=== PATIENT | female | born 1940 | race African-American/Black ===

== ENCOUNTER 2020-02-12 13:44 | Inpatient (IN) | payer MEDICARE, MEDICAID ==
[~2020-02-12] VITALS: Ht 154.9 cm; Wt 68.9 kg
[~2020-02-12 13:44] MED LIST: ASPI-1497 PO; COLC0.6T66 PO; DIAZ10TA4 PO; METF-416 PO; RISP1 PO
[2020-02-12] MEDS ORDERED: tylenol 3 (13:47)
[2020-02-12 14:48] LABS: BASOPHILS % 0.2 % (0.0-2.0); HEMOGLOBIN. 13.7 g/dL (12.0-16.0); LYMPHOCYTES % 7.7 % (20.0-50.0); MEAN CORPUSCULAR HEMOGLOBIN 30.4 pg (28.0-32.0); MEAN CORPUSCULAR VOLUME 90.9 fL (81.0-99.0); MEAN PLATELET VOLUME 9.3 fl (7.4-10.4); MONOCYTES % 7.4 % (2.0-8.0); NEUTROPHILS % 84.7 % (40.0-76.0); PLATELET 361 x1000/uL (130-400); RED BLOOD CELL COUNT 4.51 mill/uL (4.2-5.4); RED CELL DISTRIBUTION WIDTH 16.3 % (11.6-14.6)
[2020-02-12 14:53] LABS: CHLORIDE 109 mEq/L (98-107)
[2020-02-12 14:57] LABS: ETHANOL BLOOD < 10 mg/dL; INR 0.9
[2020-02-12 15:00] LABS: LDL CHOLESTEROL 90 mg/dL (5-100)
[2020-02-12] MEDS ORDERED: IPRATROPIUM/ALBUTEROL 0.5-3(2.5)MG/3ML NEB ORI PRN (16:15)
[2020-02-12] MEDS ORDERED: GUAIFENESIN 200MG/10ML SUGAR FREE UDC PO PRN (16:15)
[2020-02-12] MEDS ORDERED: NITROGLYCERIN 0.4MG TABLET SL SL PRN (16:15)
[2020-02-12] MEDS ORDERED: MAGNESIUM/ALUMINUM HYDROXIDE/SIMETHICONE 30ML UDC PO PRN (16:15)
[2020-02-12] MEDS ORDERED: ZOLPIDEM TARTRATE 5MG TABLET PO PRN ×2 (16:15→21:00)
[2020-02-12] MEDS ORDERED: LORAZEPAM 0.5MG TABLET PO PRN (16:15)
[2020-02-12] MEDS ORDERED: ONDANSETRON HCL 4MG/2ML INJ IV PRN (16:15)
[2020-02-12] MEDS ORDERED: ASPIRIN 300MG SUPP PR ONE (16:15)
[2020-02-12] MEDS ORDERED: DOCUSATE SODIUM 100MG CAPSULE PO PRN (16:15)
[2020-02-12] MEDS ORDERED: CLONIDINE 0.1MG TABLET PO PRN (16:15)
[2020-02-12 16:20] LABS: CLARITY URINE CLEAR (CLEAR); COLOR URINE YELLOW (YELLOW); KETONES URINE NEGATIVE (NEGATIVE); LEUKOCYTE ESTERASE URINE NEGATIVE (NEGATIVE); NITRITE URINE NEGATIVE (NEGATIVE); OCCULT BLOOD URINE 3+ (NEGATIVE); PROTEIN URINE 2+ (NEGATIVE); SPECIFIC GRAVITY URINE 1.024 (1.005-1.030); UROBILINOGEN URINE 0.2 E.U./dL (0.2-1.0)
[2020-02-12 16:38] LABS: *AMPHETAMINES SCREEN URINE NEGATIVE (NEGATIVE); *BARBITURATES SCREEN URINE NEGATIVE (NEGATIVE); *BENZODIAZEPINES SCREEN URINE PRESUMTIVE POSITIVE (NEGATIVE); *COCAINE SCREEN URINE NEGATIVE (NEGATIVE); METHADONE URINE SCREEN NEGATIVE (NEGATIVE); OPIATES URINE SCREEN PRESUMTIVE POSITIVE (NEGATIVE)
[2020-02-12 16:39] LABS: CANNABINOID URINE SCREEN NEGATIVE (NEGATIVE); PHENCYCLIDINE URINE SCREEN NEGATIVE (NEGATIVE)
[2020-02-12 17:26] LABS: VITAMIN B12 SERUM 495 pg/mL (211-911)
[2020-02-12 17:29] LABS: FOLIC ACID (FOLATE) SERUM > 20.00 ng/mL (>5.38)
[2020-02-12] MEDS ORDERED: DEXTROSE 50% WATER 50ML SYRINGE IV PRN (19:30)
[2020-02-12] MEDS: ATORVASTATIN CALCIUM 10MG TABLET PO SCH (21:00)
[2020-02-12] MEDS: FAMOTIDINE 20MG TABLET PO SCH (21:00)
[2020-02-12] MEDS: BLOOD SUGAR DIAGNOSTIC STRIP TEST SCH (21:00)
[2020-02-12] MEDS: ASCORBIC ACID 500 MG TABLET PO SCH (21:00)
[2020-02-12] MEDS: INSULIN LISPRO 100 UNITS/ML SUBCUT SCH (21:00)
[2020-02-12] MEDS ORDERED: IOHEXOL-350 100 ML BOTTLE ONE (22:09)
[2020-02-12] MEDS ORDERED: ENOXAPARIN 30MG/0.3ML SYR SUBCUT ONE (23:15)
[2020-02-12] MEDS: ENOXAPARIN 40MG/0.4ML SYR SUBCUT SCH (23:50)
[2020-02-13 04:00] VITALS: BP 124/62
[2020-02-13] MEDS: BLOOD SUGAR DIAGNOSTIC STRIP TEST SCH ×4 (06:38→21:20)
[2020-02-13] MEDS: INSULIN LISPRO 100 UNITS/ML SUBCUT SCH ×4 (06:38→21:00)
[2020-02-13 08:00] VITALS: BP 134/78
[2020-02-13] MEDS: ZINC SULFATE 220 MG ( 50 ) CAPSULE PO SCH (08:25)
[2020-02-13] MEDS: ASCORBIC ACID 500 MG TABLET PO SCH ×2 (08:25→22:40)
[2020-02-13] MEDS: CLOPIDOGREL 75MG TABLET PO SCH (08:25)
[2020-02-13 09:40] LABS: T4 FREE 0.82 ng/dL (0.76-1.46)
[2020-02-13 09:43] LABS: CREATINE KINASE MB FRACTION 7.7 ng/mL (0.5-3.6)
[2020-02-13 12:00] VITALS: BP 121/59
[2020-02-13 16:00] VITALS: BP 133/75
[2020-02-13] MEDS ORDERED: IPRATROPIUM/ALBUTEROL 0.5-3(2.5)MG/3ML NEB HHN PRN (16:00)
[2020-02-13 16:34] LABS: CREATINE KINASE MB FRACTION 4.9 ng/mL (0.5-3.6)
[2020-02-13] MEDS ORDERED: THROAT LOZENGES-BENZOCAINE/MENTH/CETYLPYRD CL LOZENGES MM PRN (17:30)
[2020-02-13 20:00] VITALS: BP 111/64
[2020-02-13] MEDS: FAMOTIDINE 20MG TABLET PO SCH (22:39)
[2020-02-13] MEDS: ATORVASTATIN CALCIUM 10MG TABLET PO SCH (22:39)
[2020-02-13] MEDS: ENOXAPARIN 40MG/0.4ML SYR SUBCUT SCH (22:40)
[2020-02-13] MEDS: ACETAMINOPHEN 325MG TABLET PO PRN (22:49)
[2020-02-14] VITALS: BP 118/63
[2020-02-14 04:00] VITALS: BP 108/55
[2020-02-14] MEDS: INSULIN LISPRO 100 UNITS/ML SUBCUT SCH ×4 (06:27→21:52)
[2020-02-14] MEDS: BLOOD SUGAR DIAGNOSTIC STRIP TEST SCH ×4 (06:27→21:00)
[2020-02-14 08:00] VITALS: BP 130/75
[2020-02-14] MEDS: ZINC SULFATE 220 MG ( 50 ) CAPSULE PO SCH (08:26)
[2020-02-14] MEDS: ASCORBIC ACID 500 MG TABLET PO SCH ×2 (08:26→21:50)
[2020-02-14] MEDS: CLOPIDOGREL 75MG TABLET PO SCH (08:26)
[2020-02-14 12:00] VITALS: BP 135/91
[2020-02-14 16:00] VITALS: BP 110/60
[2020-02-14] MEDS: ACETAMINOPHEN 325MG TABLET PO PRN (18:32)
[2020-02-14 20:00] VITALS: BP 158/79
[2020-02-14] MEDS: FAMOTIDINE 20MG TABLET PO SCH (21:50)
[2020-02-14] MEDS: ATORVASTATIN CALCIUM 10MG TABLET PO SCH (21:50)
[2020-02-14] MEDS: ENOXAPARIN 40MG/0.4ML SYR SUBCUT SCH (21:51)
[2020-02-15] VITALS (7 sets, daily range): BP systolic 106–150; BP diastolic 58–80
[2020-02-15] MEDS: ZINC SULFATE 220 MG ( 50 ) CAPSULE PO SCH (09:44)
[2020-02-15] MEDS: ASCORBIC ACID 500 MG TABLET PO SCH ×2 (09:44→21:18)
[2020-02-15] MEDS: CLOPIDOGREL 75MG TABLET PO SCH (09:44)
[2020-02-15] MEDS: BLOOD SUGAR DIAGNOSTIC STRIP TEST SCH ×4 (11:45→21:18)
[2020-02-15] MEDS: INSULIN LISPRO 100 UNITS/ML SUBCUT SCH ×3 (13:11→21:00)
[2020-02-15] MEDS: DILTIAZEM HCL 60MG TABLET PO SCH ×2 (14:30→17:35)
[2020-02-15] MEDS: ATORVASTATIN CALCIUM 10MG TABLET PO SCH (21:18)
[2020-02-15] MEDS: FAMOTIDINE 20MG TABLET PO SCH (21:18)
[2020-02-15] MEDS: ENOXAPARIN 40MG/0.4ML SYR SUBCUT SCH (21:31)
[2020-02-16] VITALS: BP 152/69
[2020-02-16] MEDS: DILTIAZEM HCL 60MG TABLET PO SCH ×4 (00:54→18:16)
[2020-02-16 04:00] VITALS: BP 134/62
[2020-02-16] MEDS: BLOOD SUGAR DIAGNOSTIC STRIP TEST SCH ×3 (07:01→17:20)
[2020-02-16] MEDS: INSULIN LISPRO 100 UNITS/ML SUBCUT SCH ×3 (07:15→17:15)
[2020-02-16] MEDS: ZINC SULFATE 220 MG ( 50 ) CAPSULE PO SCH (08:49)
[2020-02-16] MEDS: CLOPIDOGREL 75MG TABLET PO SCH (08:49)
[2020-02-16] MEDS: ASCORBIC ACID 500 MG TABLET PO SCH (08:49)
[2020-02-16 12:00] VITALS: BP 135/72
[2020-02-16 12:43] VITALS: BP 135/72
[2020-02-16 16:29] VITALS: BP 125/58
[2020-02-19 01:41] VITALS: BP 114/41
[2020-02-19 05:20] VITALS: BP 112/43
== END 2020-02-16 19:20 | DRG 70 ==
LOC: ER 13:59 → EDBEDREQSVC 14:40 → EDBEDREQTM 14:40 → EDBEDREQ 14:40 → UNDOADMIN 15:59 → MICUSO 15:59 → EDBEDREQTM 16:01 → EDBEDREQ 16:01 → SUPCPDRO 16:13 → MICUSO 22:47 → 5WST 02-13 05:08
PROVIDERS: ADMIT Internal Medicine; ATTEND Internal Medicine
DX: G93.41 Metabolic encephalopathy (principal); G82.50 Quadriplegia, unspecified; M62.82 Rhabdomyolysis; R47.01 Aphasia; E11.9 Type 2 diabetes mellitus without complications; E78.5 Hyperlipidemia, unspecified; D72.829 Elevated white blood cell count, unspecified; E78.00 Pure hypercholesterolemia, unspecified; I10 Essential (primary) hypertension; K80.20 Calculus of gallbladder without cholecystitis without obstruction; R13.10 Dysphagia, unspecified; R47.1 Dysarthria and anarthria; X58.XXXA Exposure to other specified factors, initial encounter; Z20.828 Contact with and (suspected) exposure to other viral communicable diseases; S81.802A Unspecified open wound, left lower leg, initial encounter; Z86.73 Personal history of transient ischemic attack (TIA), and cerebral infarction without residual deficits; Z79.4 Long term (current) use of insulin; Z79.899 Other long term (current) drug therapy; Z79.82 Long term (current) use of aspirin; Z79.84 Long term (current) use of oral hypoglycemic drugs; Y93.89 Activity, other specified; Y92.89 Other specified places as the place of occurrence of the external cause; Y99.8 Other external cause status
CPT/HCPCS: 36415; 70496; 70498; 70551; 71045; 71275; 80053; 80061; 80305; 80320; 81003; 82550; 82553; 82607; 82746; 82962; 83036; 83540; 83550; 83721; 83880; 84439; 84443; 84484; 85025; 93005; 93306; 93970; 97162; 97166; 97530; 97535; 99291; J1650; J1815; Q9967; G0480; U0003-CS

== ENCOUNTER 2020-03-24 17:39 | Inpatient (IN) | payer MEDICARE, MEDICAID ==
[~2020-03-24] VITALS: Ht 162.6 cm; Wt 77.1 kg
[~2020-03-24 17:39] MED LIST changes: +tylenol 3
[2020-03-24 18:34] LABS: EOSINOPHILS % 4.2 % (0.0-5.0); HEMATOCRIT. 34.1 % (36.0-48.0); HEMOGLOBIN. 11.2 g/dL (12.0-16.0); MEAN CORPUSCULAR HEMOGLOBIN 30.8 pg (28.0-32.0); MEAN CORPUSCULAR VOLUME 93.7 fL (81.0-99.0); MEAN PLATELET VOLUME 9.3 fl (7.4-10.4); MONOCYTES % 12.6 % (2.0-8.0); NEUTROPHILS % 50.2 % (40.0-76.0); PLATELET 221 x1000/uL (130-400); RED BLOOD CELL COUNT 3.64 mill/uL (4.2-5.4); RED CELL DISTRIBUTION WIDTH 14.7 % (11.6-14.6)
[2020-03-24 18:40] LABS: PROTHROMBIN TIME 10.5 sec (9.6-11.0)
[2020-03-24] MEDS ORDERED: SODIUM CHLORIDE 0.9% 1,000 ML IV ONE (18:45)
[2020-03-24 18:55] LABS: CHLORIDE 112 mEq/L (98-107)
[2020-03-24 18:59] LABS: ETHANOL BLOOD < 10 mg/dL
[2020-03-24 19:01] LABS: LDL CHOLESTEROL 98 mg/dL (5-100)
[2020-03-24] MEDS ORDERED: SODIUM CHLORIDE 0.9% 1000ML BAG (SEPSIS BOLUS) IV ONE (20:00)
[2020-03-24] MEDS ORDERED: DEXTROSE 50% WATER 50ML SYRINGE IV PRN (20:00)
[2020-03-24] MEDS ORDERED: ENOXAPARIN 40MG/0.4ML SYR SUBCUT SCH (20:00)
[2020-03-24] MEDS ORDERED: NITROGLYCERIN 0.4MG TABLET SL SL PRN (20:00)
[2020-03-24] MEDS ORDERED: IPRATROPIUM/ALBUTEROL 0.5-3(2.5)MG/3ML NEB HHN PRN (20:00)
[2020-03-24] MEDS ORDERED: TRAMADOL 50MG TABLET PO PRN (20:00)
[2020-03-24] MEDS ORDERED: ONDANSETRON HCL 4MG/2ML INJ IV PRN (20:00)
[2020-03-24] MEDS ORDERED: MAGNESIUM/ALUMINUM HYDROXIDE/SIMETHICONE 30ML UDC PO PRN (20:00)
[2020-03-24] MEDS ORDERED: ACETAMINOPHEN 325MG TABLET PO PRN ×2 (20:00)
[2020-03-24] MEDS ORDERED: DOCUSATE SODIUM 100MG CAPSULE PO PRN (20:00)
[2020-03-24] MEDS ORDERED: GUAIFENESIN 200MG/10ML SUGAR FREE UDC PO PRN (20:00)
[2020-03-24] MEDS ORDERED: NA PHOS,M-B/NA PHOS,DI-BA ENEMA 118ML PR PRN (20:00)
[2020-03-24] MEDS ORDERED: CLONIDINE 0.1MG TABLET PO PRN (20:00)
[2020-03-24] MEDS ORDERED: SODIUM CHLORIDE 0.9% 2,310 ML IV SCH (21:00)
[2020-03-24] MEDS ORDERED: ZOLPIDEM TARTRATE 5MG TABLET PO PRN (21:00)
[2020-03-24] MEDS: ASCORBIC ACID 500 MG TABLET PO SCH (21:00)
[2020-03-24] MEDS ORDERED: FAMOTIDINE 20MG TABLET PO SCH (21:00)
[2020-03-24] MEDS: ENOXAPARIN 30MG/0.3ML SYR SUBCUT SCH (21:00)
[2020-03-24] MEDS: ATORVASTATIN CALCIUM 10MG TABLET PO SCH (21:00)
[2020-03-24] MEDS: BLOOD SUGAR DIAGNOSTIC STRIP TEST SCH (21:00)
[2020-03-24] MEDS: INSULIN LISPRO 100 UNITS/ML SUBCUT SCH (21:00)
[2020-03-24] MEDS ORDERED: VANCOMYCIN 1500MG in DEXTROSE 5% WATER 250ML IV NR (21:00)
[2020-03-24] MEDS: PIPERACILLIN/TAZ 3.375G PREMIX 50 ML IV SCH (22:00)
[2020-03-24 22:09] LABS: CREATINE KINASE MB FRACTION 1.3 ng/mL (0.5-3.6)
[2020-03-25] MEDS: BLOOD SUGAR DIAGNOSTIC STRIP TEST SCH ×4 (08:32→21:00)
[2020-03-25] MEDS: INSULIN LISPRO 100 UNITS/ML SUBCUT SCH ×4 (08:33→21:00)
[2020-03-25] MEDS: PIPERACILLIN/TAZ 3.375G PREMIX 50 ML IV SCH ×2 (08:52→17:23)
[2020-03-25] MEDS: CLOPIDOGREL 75MG TABLET PO SCH (09:30)
[2020-03-25] MEDS: ZINC SULFATE 220 MG ( 50 ) CAPSULE PO SCH (09:30)
[2020-03-25] MEDS: ASCORBIC ACID 500 MG TABLET PO SCH ×2 (09:30→22:33)
[2020-03-25 20:45] VITALS: BP 156/86
[2020-03-25] MEDS ORDERED: VANCOMYCIN 750 MG PREMIX 150 ML IV SCH (21:00)
[2020-03-25] MEDS: FAMOTIDINE 10MG TABLET PO SCH (22:33)
[2020-03-25] MEDS: ENOXAPARIN 30MG/0.3ML SYR SUBCUT SCH (22:34)
[2020-03-25] MEDS: ATORVASTATIN CALCIUM 10MG TABLET PO SCH (22:37)
[2020-03-25] MEDS: PIPERACILLIN/TAZOBACTAM 3.375 G in DEXT 5% WATER 100 ML IV SCH (23:43)
[2020-03-26] VITALS: BP 144/64
[2020-03-26 04:00] VITALS: BP 140/64
[2020-03-26] MEDS: INSULIN LISPRO 100 UNITS/ML SUBCUT SCH ×4 (06:23→21:36)
[2020-03-26] MEDS: BLOOD SUGAR DIAGNOSTIC STRIP TEST SCH ×4 (06:23→20:51)
[2020-03-26] MEDS: PIPERACILLIN/TAZOBACTAM 3.375 G in DEXT 5% WATER 100 ML IV SCH ×3 (06:33→22:12)
[2020-03-26 07:55] VITALS: BP 128/60
[2020-03-26] MEDS: CLOPIDOGREL 75MG TABLET PO SCH (09:19)
[2020-03-26] MEDS: ZINC SULFATE 220 MG ( 50 ) CAPSULE PO SCH (09:19)
[2020-03-26] MEDS: ASCORBIC ACID 500 MG TABLET PO SCH ×2 (09:19→21:33)
[2020-03-26 12:00] VITALS: BP 152/85
[2020-03-26 16:00] VITALS: BP 151/80
[2020-03-26 20:00] VITALS: BP 148/84
[2020-03-26 20:43] LABS: CLARITY URINE CLEAR (CLEAR); COLOR URINE YELLOW (YELLOW); KETONES URINE NEGATIVE (NEGATIVE); LEUKOCYTE ESTERASE URINE NEGATIVE (NEGATIVE); NITRITE URINE NEGATIVE (NEGATIVE); OCCULT BLOOD URINE NEGATIVE (NEGATIVE); PROTEIN URINE NEGATIVE (NEGATIVE); SPECIFIC GRAVITY URINE 1.015 (1.005-1.030)
[2020-03-26] MEDS: VANCOMYCIN 750 MG PREMIX 150 ML IV SCH (21:27)
[2020-03-26] MEDS: ATORVASTATIN CALCIUM 10MG TABLET PO SCH (21:33)
[2020-03-26] MEDS: FAMOTIDINE 10MG TABLET PO SCH (21:34)
[2020-03-26] MEDS: ENOXAPARIN 30MG/0.3ML SYR SUBCUT SCH (21:35)
[2020-03-27] VITALS: BP 121/63
[2020-03-27 04:00] VITALS: BP 169/82
[2020-03-27] MEDS: PIPERACILLIN/TAZOBACTAM 3.375 G in DEXT 5% WATER 100 ML IV SCH ×3 (05:03→22:08)
[2020-03-27] MEDS: BLOOD SUGAR DIAGNOSTIC STRIP TEST SCH ×4 (06:26→20:52)
[2020-03-27] MEDS: INSULIN LISPRO 100 UNITS/ML SUBCUT SCH ×4 (06:35→20:53)
[2020-03-27 08:00] VITALS: BP 153/75
[2020-03-27] MEDS: ZINC SULFATE 220 MG ( 50 ) CAPSULE PO SCH (08:37)
[2020-03-27] MEDS: ASCORBIC ACID 500 MG TABLET PO SCH ×2 (08:37→20:44)
[2020-03-27] MEDS: CLOPIDOGREL 75MG TABLET PO SCH (08:37)
[2020-03-27 12:00] VITALS: BP 129/80
[2020-03-27 16:00] VITALS: BP 133/76
[2020-03-27] MEDS: VANCOMYCIN 750 MG PREMIX 150 ML IV SCH (16:44)
[2020-03-27 20:00] VITALS: BP 152/85
[2020-03-27] MEDS: FAMOTIDINE 10MG TABLET PO SCH (20:44)
[2020-03-27] MEDS: ENOXAPARIN 30MG/0.3ML SYR SUBCUT SCH (20:45)
[2020-03-27] MEDS: ATORVASTATIN CALCIUM 10MG TABLET PO SCH (20:46)
[2020-03-28] VITALS: BP 160/79
[2020-03-28 04:00] VITALS: BP 162/90
[2020-03-28] MEDS: PIPERACILLIN/TAZOBACTAM 3.375 G in DEXT 5% WATER 100 ML IV SCH (06:20)
[2020-03-28] MEDS: INSULIN LISPRO 100 UNITS/ML SUBCUT SCH ×2 (06:26→12:40)
[2020-03-28] MEDS: BLOOD SUGAR DIAGNOSTIC STRIP TEST SCH ×2 (06:26→12:54)
[2020-03-28 07:16] LABS: CHLORIDE 110 mEq/L (98-107)
[2020-03-28 07:55] VITALS: BP 153/79
[2020-03-28] MEDS ORDERED: POTASSIUM CHLORIDE 20MEQ/PACKET PO SCH (08:30)
[2020-03-28] MEDS: CLOPIDOGREL 75MG TABLET PO SCH (09:25)
[2020-03-28] MEDS: ZINC SULFATE 220 MG ( 50 ) CAPSULE PO SCH (09:25)
[2020-03-28] MEDS: ASCORBIC ACID 500 MG TABLET PO SCH (09:25)
[2020-03-28] MEDS ORDERED: KCL 20MEQ/100ML PREMIX 100 ML IV SCH (10:00)
[2020-03-28] MEDS ORDERED: VANCOMYCIN 1 G PREMIX 200 ML IV SCH (11:30)
[2020-03-28 11:49] VITALS: BP 133/78
[2020-03-28] MEDS ORDERED: ATOR10TA PO (13:47)
[2020-03-28] MEDS ORDERED: CLOP75TA15 PO (13:47)
[2020-03-28 16:00] VITALS: BP 159/78
[2020-03-28] MEDS ORDERED: ENOXAPARIN 40MG/0.4ML SYR SUBCUT SCH (16:00)
[2020-03-28 18:54] VITALS: BP 159/78
== END 2020-03-28 20:15 | disposition home health service (06) | DRG 871 ==
LOC: ER 17:39 → EDBEDREQTM 18:47 → EDBEDREQSVC 18:47 → EDBEDREQ 18:47 → MICUSO 19:13 → EDBEDREQ 19:56 → EDBEDREQTM 19:56 → 8WST 03-25 22:11
PROVIDERS: ADMIT Internal Medicine; ATTEND Internal Medicine
DX: A41.9 Sepsis, unspecified organism (principal); G92 Toxic encephalopathy; E43 Unspecified severe protein-calorie malnutrition; G82.50 Quadriplegia, unspecified; N17.0 Acute kidney failure with tubular necrosis; G45.9 Transient cerebral ischemic attack, unspecified; E87.1 Hypo-osmolality and hyponatremia; E87.2 Acidosis; I13.0 Hypertensive heart and chronic kidney disease with heart failure and stage 1 through stage 4 chronic kidney disease, or unspecified chronic kidney disease; I50.32 Chronic diastolic (congestive) heart failure; L97.909 Non-pressure chronic ulcer of unspecified part of unspecified lower leg with unspecified severity; L03.90 Cellulitis, unspecified; R65.20 Severe sepsis without septic shock; Z68.29 Body mass index [BMI] 29.0-29.9, adult; E83.51 Hypocalcemia; D63.8 Anemia in other chronic diseases classified elsewhere; N18.9 Chronic kidney disease, unspecified; G90.8 Other disorders of autonomic nervous system; E11.22 Type 2 diabetes mellitus with diabetic chronic kidney disease; E11.51 Type 2 diabetes mellitus with diabetic peripheral angiopathy without gangrene; E78.00 Pure hypercholesterolemia, unspecified; R74.0 Nonspecific elevation of levels of transaminase and lactic acid dehydrogenase [LDH]; E11.622 Type 2 diabetes mellitus with other skin ulcer; E78.5 Hyperlipidemia, unspecified; I70.202 Unspecified atherosclerosis of native arteries of extremities, left leg; R13.10 Dysphagia, unspecified; Z79.4 Long term (current) use of insulin; Z79.82 Long term (current) use of aspirin; Z79.84 Long term (current) use of oral hypoglycemic drugs; Z79.899 Other long term (current) drug therapy
CPT/HCPCS: 36415; 70551; 71045; 80048; 80053; 80061; 80202; 80320; 81003; 82140; 82550; 82553; 82962; 83036; 83605; 83721; 84443; 84484; 85025; 93005; 93970; 97162; 97166; 97530; 99285; J1650; J1815; J2543; J3370; J3480; J7030; J7060; G0480

== ENCOUNTER 2020-03-31 20:11 | Inpatient (IN) | payer MEDICARE, MEDICAID ==
[~2020-03-31] VITALS: Ht 154.9 cm; Wt 60.8 kg
[~2020-03-31 20:11] MED LIST changes: +ATOR10TA PO; +CLOP75TA15 PO; -DIAZ10TA4 PO; -RISP1 PO; -tylenol 3
[2020-03-31 21:01] LABS: EOSINOPHILS % 4.8 % (0.0-5.0); HEMATOCRIT. 33.3 % (36.0-48.0); HEMOGLOBIN. 10.9 g/dL (12.0-16.0); LYMPHOCYTES % 20.1 % (20.0-50.0); MEAN CORPUSCULAR VOLUME 91.5 fL (81.0-99.0); MEAN PLATELET VOLUME 9.9 fl (7.4-10.4); MONOCYTES % 10.2 % (2.0-8.0); NEUTROPHILS % 63.9 % (40.0-76.0); PLATELET 241 x1000/uL (130-400); RED BLOOD CELL COUNT 3.64 mill/uL (4.2-5.4); RED CELL DISTRIBUTION WIDTH 14.5 % (11.6-14.6)
[2020-03-31 21:05] LABS: CHLORIDE 113 mEq/L (98-107)
[2020-03-31 21:12] LABS: PARTIAL THROMBOPLASTIN TIME 21.9 sec (23.4-31.0); PROTHROMBIN TIME 10.4 sec (9.6-11.0)
[2020-03-31] MEDS ORDERED: VISCOUS LIDOCAINE 2% 15 ML UDC PO ONE (22:15)
[2020-03-31] MEDS ORDERED: MAGNESIUM/ALUMINUM HYDROXIDE/SIMETHICONE 30ML UDC PO ONE (22:15)
[2020-03-31] MEDS ORDERED: ASPIRIN 81MG TABLET PO ONE (22:15)
[2020-04-01] MEDS ORDERED: SODIUM CHLORIDE 0.9% 1,000 ML IV ONE (00:45)
[2020-04-01 04:00] VITALS: BP 137/72
[2020-04-01] MEDS ORDERED: DEXTROSE 50% WATER 50ML SYRINGE IV PRN (05:30)
[2020-04-01] MEDS: BLOOD SUGAR DIAGNOSTIC STRIP TEST SCH ×4 (05:44→21:48)
[2020-04-01] MEDS: INSULIN LISPRO 100 UNITS/ML SUBCUT SCH ×4 (05:44→21:00)
[2020-04-01] MEDS ORDERED: METFORMIN HCL 500MG TABLET PO SCH (07:15)
[2020-04-01 08:00] VITALS: BP 153/59
[2020-04-01] MEDS ORDERED: COLCHICINE 0.6MG TABLET PO SCH (09:00)
[2020-04-01] MEDS: ASPIRIN 81MG TABLET PO SCH (09:20)
[2020-04-01] MEDS: CLOPIDOGREL 75MG TABLET PO SCH (09:20)
[2020-04-01] MEDS: METOPROLOL TARTRATE 25MG TABLET PO SCH ×2 (09:20→21:00)
[2020-04-01] MEDS: ISOSORBIDE MONONITRATE 60MG TABLET SR 24HR PO SCH (09:21)
[2020-04-01] MEDS: SODIUM CHLORIDE 0.45% 1,000 ML IV SCH (10:02)
[2020-04-01] MEDS ORDERED: AMLODIPINE 2.5MG TABLET PO SCH (10:45)
[2020-04-01 12:00] VITALS: BP 109/63
[2020-04-01 12:36] LABS: CLARITY URINE CLOUDY (CLEAR); COLOR URINE DK YELLOW (YELLOW); KETONES URINE TRACE (NEGATIVE); LEUKOCYTE ESTERASE URINE 3+ (NEGATIVE); NITRITE URINE NEGATIVE (NEGATIVE); OCCULT BLOOD URINE NEGATIVE (NEGATIVE); PROTEIN URINE NEGATIVE (NEGATIVE); SPECIFIC GRAVITY URINE 1.022 (1.005-1.030); UROBILINOGEN URINE 0.2 E.U./dL (0.2-1.0)
[2020-04-01] MEDS ORDERED: TRAMADOL 50MG TABLET PO PRN (13:15)
[2020-04-01] MEDS ORDERED: CEFTRIAXONE 1 G PREMIX 50 ML IV SCH (14:00)
[2020-04-01] MEDS: CEFTRIAXONE 1,000 MG in DEXTROSE 5% WATER 50 ML IV SCH (15:37)
[2020-04-01] MEDS: ENOXAPARIN 30MG/0.3ML SYR SUBCUT SCH (15:37)
[2020-04-01 15:56] VITALS: BP 128/52
[2020-04-01 20:00] VITALS: BP 104/62
[2020-04-01] MEDS ORDERED: ATORVASTATIN CALCIUM 40MG TABLET PO SCH (21:00)
[2020-04-02] VITALS: BP 179/74
[2020-04-02] MEDS: METOPROLOL TARTRATE 25MG TABLET PO SCH ×2 (00:48→09:27)
[2020-04-02 04:00] VITALS: BP 174/75
[2020-04-02 06:20] LABS: BASOPHILS % 0.7 % (0.0-2.0); EOSINOPHILS % 3.7 % (0.0-5.0); HEMATOCRIT. 34.6 % (36.0-48.0); HEMOGLOBIN. 11.3 g/dL (12.0-16.0); LYMPHOCYTES % 18.8 % (20.0-50.0); MEAN CORPUSCULAR HEMOGLOBIN 29.9 pg (28.0-32.0); MEAN CORPUSCULAR VOLUME 91.5 fL (81.0-99.0); MEAN PLATELET VOLUME 9.9 fl (7.4-10.4); MONOCYTES % 12.8 % (2.0-8.0); PLATELET 236 x1000/uL (130-400); RED BLOOD CELL COUNT 3.78 mill/uL (4.2-5.4); RED CELL DISTRIBUTION WIDTH 14.4 % (11.6-14.6)
[2020-04-02] MEDS: INSULIN LISPRO 100 UNITS/ML SUBCUT SCH ×3 (06:21→17:15)
[2020-04-02] MEDS: BLOOD SUGAR DIAGNOSTIC STRIP TEST SCH ×3 (06:21→17:15)
[2020-04-02] MEDS: SODIUM CHLORIDE 0.45% 1,000 ML IV SCH (06:41)
[2020-04-02 08:00] VITALS: BP 164/72
[2020-04-02] MEDS ORDERED: AMLODIPINE 5MG TABLET PO SCH (09:00)
[2020-04-02] MEDS ORDERED: MAGNESIUM GLUCONATE 500MG TABLET PO SCH (09:00)
[2020-04-02] MEDS: ISOSORBIDE MONONITRATE 60MG TABLET SR 24HR PO SCH (09:27)
[2020-04-02] MEDS: CLOPIDOGREL 75MG TABLET PO SCH (09:27)
[2020-04-02] MEDS: ASPIRIN 81MG TABLET PO SCH (09:27)
[2020-04-02 12:00] VITALS: BP_SYST 124; BP_SYST 139; BP_DIAS 76; BP_DIAS 83
[2020-04-02] MEDS ORDERED: LEVO500T2 MT (14:13)
[2020-04-02] MEDS: ENOXAPARIN 30MG/0.3ML SYR SUBCUT SCH (14:35)
[2020-04-02] MEDS: CEFTRIAXONE 1,000 MG in DEXTROSE 5% WATER 50 ML IV SCH (14:36)
[2020-04-02 17:23] VITALS: BP 125/80
== END 2020-04-02 18:24 | disposition home or self-care (01) | DRG 205 ==
LOC: ER 20:20 → 5WST 04-01 00:42 → ENRESERV 04-01 02:38 → 5WST 04-01 04:15
PROVIDERS: ADMIT Internal Medicine; ATTEND Internal Medicine
DX: M94.0 Chondrocostal junction syndrome [Tietze] (principal); N17.0 Acute kidney failure with tubular necrosis; E44.0 Moderate protein-calorie malnutrition; I50.32 Chronic diastolic (congestive) heart failure; N39.0 Urinary tract infection, site not specified; D64.9 Anemia, unspecified; E11.51 Type 2 diabetes mellitus with diabetic peripheral angiopathy without gangrene; E78.00 Pure hypercholesterolemia, unspecified; E78.5 Hyperlipidemia, unspecified; E87.8 Other disorders of electrolyte and fluid balance, not elsewhere classified; I11.0 Hypertensive heart disease with heart failure; Z79.02 Long term (current) use of antithrombotics/antiplatelets; Z79.82 Long term (current) use of aspirin; Z86.73 Personal history of transient ischemic attack (TIA), and cerebral infarction without residual deficits; Z87.891 Personal history of nicotine dependence; Z91.19 Patient's noncompliance with other medical treatment and regimen; Z68.25 Body mass index [BMI] 25.0-25.9, adult; Z79.899 Other long term (current) drug therapy
CPT/HCPCS: 36415; 71045; 80048; 80053; 81003; 82962; 83036; 83735; 83880; 84484; 85025; 93005; 97162; 99285; J0696; J1650; J7030; J7060